=== PATIENT | female | born 1985 | race Caucasian/White ===

== ENCOUNTER 2020-12-02 13:27 | Emergency (ER) | payer OTHER ==
[2020-12-02] MEDS ORDERED: KEFLEX CAP 500500 MG PO (17:07)
[2020-12-02] MEDS ORDERED: BACTRIM DS TAB1 EACH PO (17:07)
== END 2020-12-02 17:22 | disposition home or self-care (01) ==
LOC: ER1 13:27
DX: L02.211 Cutaneous abscess of abdominal wall (principal); J44.9 Chronic obstructive pulmonary disease, unspecified; Z98.51 Tubal ligation status; Z90.49 Acquired absence of other specified parts of digestive tract
CPT/HCPCS: 10060; 82962; 99282

== ENCOUNTER 2020-12-07 21:38 | Emergency (ER) | payer OTHER ==
[~2020-12-07 21:38] MED LIST: BACTRIM DS TAB1 EACH PO; KEFLEX CAP 500500 MG PO
[2020-12-07 23:32] LABS: HEMOGLOBIN 13.2 gm/dl (12.3-15.3); RED BLOOD COUNT 4.88 M/UL (4.00-5.10); WHITE BLOOD COUNT 9.7 K/UL (4.5-11.0)
[2020-12-07 23:56] LABS: BUN/CREATININE RATIO 17 (0-10)
[2020-12-08] MEDS ORDERED: PREDNISONE 10 M10 MG PO (02:28)
[2020-12-08] MEDS ORDERED: AUGMENTIN 875-1 EACH PO (02:28)
== END 2020-12-08 02:39 | disposition home or self-care (01) ==
LOC: ER1 21:38
PROVIDERS: Emergency Medicine
DX: J45.901 Unspecified asthma with (acute) exacerbation (principal); J44.9 Chronic obstructive pulmonary disease, unspecified; J02.9 Acute pharyngitis, unspecified; I10 Essential (primary) hypertension; F17.210 Nicotine dependence, cigarettes, uncomplicated; Z99.81 Dependence on supplemental oxygen; Z20.822 Contact with and (suspected) exposure to COVID-19
CPT/HCPCS: 71045; 71250; 80053; 82550; 82553; 83874; 84484; 85025; 93005; 96374; 99285; J1100; U0002

== ENCOUNTER 2021-01-01 12:38 | Emergency (ER) | payer OTHER ==
[~2021-01-01 12:38] MED LIST changes: +AUGMENTIN 875-1 EACH PO; +PREDNISONE 10 M10 MG PO
[2021-01-01 13:28] LABS: HEMOGLOBIN 13.3 gm/dl (12.3-15.3); RED BLOOD COUNT 4.85 M/UL (4.00-5.10); WHITE BLOOD COUNT 10.3 K/UL (4.5-11.0)
[2021-01-01 13:51] LABS: BUN/CREATININE RATIO 26 (0-10)
== END 2021-01-01 16:40 | disposition home or self-care (01) ==
LOC: ER1 12:38
PROVIDERS: Physician Assistant
DX: R07.9 Chest pain, unspecified (principal); J45.909 Unspecified asthma, uncomplicated; F17.200 Nicotine dependence, unspecified, uncomplicated; Z20.822 Contact with and (suspected) exposure to COVID-19; Z90.49 Acquired absence of other specified parts of digestive tract; Z79.899 Other long term (current) drug therapy
CPT/HCPCS: 0240U; 36415; 71045; 80053; 82550; 82553; 83874; 84484; 85025; 85379; 93005; 99285